=== PATIENT | male | born 1960 | race Caucasian/White ===

== ENCOUNTER 2019-09-21 10:14 | Emergency (ER) | payer MEDICARE, MEDICAID, SELFPAY ==
[2019-09-21 10:15] VITALS: BP 151/110; PULSE 96; RESP 18; TEMP 36.7; O2SAT 93; BMI 31.6
--- NOTE | 2019-09-21 10:41 | ED.DCSUM_ITS ---
History of Present Illness Chief Complaint: Bite Informant: Patient, Family Narrative: Patient was walking his dog when a husky got away from its senior research analyst and he tried to contain the husky and the husky bit him in the right wrist. He states his tetanus is up-to-date. Past Medical History - Allergies and Home Meds Allergies/Adverse Reactions: Allergies No Known Allergies Allergy (Verified 09/21/19 10:15) Primary Care Physician: Chester Baker MD [Primary Care Provider] - 7 Days for suture removal Review of Systems General: Denies: Chills, Fever, Sweats Eyes: Denies: Visual changes - bilaterally, Diplopia ENT: Denies: Rhinorrhea, Sore throat Cardiovascular: Denies: Chest pain, Palpitations Respiratory: Denies: Dyspnea, Cough, Dyspnea on exertion Gastrointestinal: Denies: Abdominal pain, Nausea, Vomiting, Diarrhea, Melena, Hematochezia Genitourinary: Denies: Dysuria, Hematuria, Frequency Musculoskeletal: Denies: Back pain, Extremity Pain Skin: Denies: Rash, Wounds Neurological: Denies: Headache, Weakness, Numbness Physical Exam Vital Signs/Narrative: Vital Signs Temp Pulse Resp BP Pulse Ox 09/21/19 10:15 98.1 F 96 18 151/110 H 93 Inital Vital Signs reviewed: Yes General: Well nourished, Well developed, No Acute Distress Head: Normocephalic, Atraumatic Eyes: Perrl, EOMI ENT: Moist mucous membranes, No rhinorrhea Neck: Supple, Nontender Cardiovascular: Regular rate, Regular rhythm, No murmurs Respiratory: No distress, CTA bilaterally, Chest nontender Abdomen: Soft, Nontender, Nondistended, Normal bowel sounds Back: Nontender, Normal Inspection Extremities: No edema, - - On the lateral wrist is 1/2 cm laceration with some mild swelling. On the medial wrist is a 1 cm gaping laceration with adipose tissue exposed. Neurovascular intact distal. Full range of motion. Skin: Normal color, No rash Neurological: Alert, Oriented x3, Cranial nerves II-XII grossly intact, Normal Strength, Normal Sensation Psychological: Normal affect, Normal Mood Diagnostic/Tx/Re-eval - Medical Decision Making Wound was local anesthetized using 1% lidocaine. The 1 cm gaping laceration was closed loosely with 2 4-0 simple erupted Ethilon sutures. This was done after washing with Shur-Clens and exploring. The half centimeter wound was evaluated and was noted to be bleeding still. It was washed with Shur-Clens and explored and because it also was gaping and still bleeding a one 4-0 Ethilon simple suture was placed with loose approximation of the skin. He was given Augmentin here and will receive a prescription for the same. Patient was advised that he is his high risk of infection as well as his family. Stitches will need to be removed in 7 days. The dog will be monitored. ED Disposition - Plan for ED Patient: Disposition: Home or Assisted Living Diagnosis: Dog bite of right wrist Instructions: Dog Bite Prescriptions: Amox/Clavulanate Tablet [Augmentin Tablet] 875 mg PO Q12H #14 tab Prescription Printed Referrals: Chester Baker MD [Primary Care Provider] - 7 Days for suture removal
--- NOTE | 2019-09-21 10:50 | RAD_ITS ---
STUDY: X-RAY - RIGHT WRIST REASON FOR EXAM: Male, 59 years old. Dog bite right wrist TECHNIQUE: 3 view(s) of the wrist were obtained. COMPARISON: None. FINDINGS: Normal visualized distal radius and ulna. Normal radiocarpal articulation. Normal distal radioulnar articulation. Normal carpal bones. Normal carpal articulations. Normal carpometacarpal articulation of the thumb. Normal second through fifth carpometacarpal articulations. Normal visualized metacarpal bones. The soft tissue structures are unremarkable. No foreign body is seen. RAD/Wrist min 3 Views IMPRESSION: Normal x-ray examination of the wrist. Electronically Signed: Trav Coreas, at 11:13 EDT , Service support ,
[2019-09-21] MEDS: Amox/Clavulanate 875 MG Tablet PO (11:08)
[2019-09-21 11:32] VITALS: PULSE 70; RESP 16; O2SAT 100
== END 2019-09-21 11:32 | disposition home or self-care (01) ==
LOC: ED 10:56
PROVIDERS: Emergency Provider Emergency Medicine; PCP Internal Medicine
DX: S61.551A Open bite of right wrist, initial encounter (principal); W54.0XXA Bitten by dog, initial encounter; Y93.89 Activity, other specified; Y92.89 Other specified places as the place of occurrence of the external cause; Y99.8 Other external cause status
CPT/HCPCS: 12001; 73110; 99283

== ENCOUNTER 2021-08-02 09:25 | Emergency (ER) | payer MEDICARE, MEDICAID, SELFPAY ==
[2021-08-02 09:25] VITALS: BP 122/89; PULSE 77; RESP 16; TEMP 35.6; O2SAT 99; BMI 31.9
--- NOTE | 2021-08-02 09:47 | RAD_ITS ---
INDICATION: injury/ fall EXAMINATION/TECHNIQUE: X-RAY - LEFT XR Wrist Min 3 Views 3 VIEWS COMPARISON: None. FINDINGS: SOFT TISSUES: A wrist joint effusion is seen. There is also soft tissue swelling of the wrist. No radiopaque foreign body. BONES/JOINTS: There is a comminuted fracture of the distal radius that appears to involve the articular surface. There is displacement of the fragments, most notably along the heel sided aspect of the articular surface of the radius. There is also a comminuted and mildly displaced fracture of the ulnar styloid. Lastly there is a osseous body overlying the dorsal aspect of the wrist which likely represents triquetral fracture. No obvious dislocation is seen joint spacing is grossly preserved without significant degenerative change. No erosive changes are seen. RAD/Wrist min 3 Views IMPRESSION: 1. Comminuted and displaced intra-articular fracture of the distal radius. 2. Comminuted and mildly displaced fracture of the ulnar styloid. 3. Likely fracture of the triquetrum. 4. Joint effusion and soft tissue swelling in the wrist. Electronically Signed: Esau Rivero MD at 10:19 EST Tel , Service support ,
--- NOTE | 2021-08-02 09:48 | EDS_ITS ---
HPI History of Present Illness Chief Complaint: Upper Extremity Injury Detail of Chief Complaint: Fall with injury to left wrist today approximately 7 AM Informant: patient Narrative Narrative: Patient presents to the emergency department after falling and injuring his left wrist. Patient states that he was walking his dog when he slipped and fell. Patient is left-hand dominant. Patient denies head or neck injury. He denies chest or abdomen pain. He has been ambulatory. PFSH PFSH Medical History no medical history Home Medications amoxicillin-pot clavulanate 875 mg PO Q12H #14 tab 09/21/19 [Rx Last Taken Unknown] hydrochlorothiazide 12.5 mg PO DAILY 09/21/19 [History Last Taken Unknown] loperamide 2 mg PO PRN PRN 09/21/19 [History Last Taken Unknown] multivitamin with folic acid 1 tab PO DAILY 09/21/19 [History Last Taken Unknown] hydrocodone-acetaminophen 1 tab PO Q4H PRN PRN 2 Days #15 tablet 08/02/21 [Rx Last Taken Unknown] Allergy/AdvReac Type Severity Reaction Status Date / Time No Known Allergies Allergy Verified 09/21/19 10:15 Family History no significant family his Surgical History no surgical history Social History Smoking Status: Never smoker ROS ROS ED Constitutional Constitutional ED: Reports systems reviewed and no addt'l complaints, except as documented; Denies body ache(s), change in weight or chills Eyes Eyes: Denies acute decrease in peripheral vision, change in vision, double vision or loss of vision ENT ENT ED: Reports none; Denies ear pain, lip swelling, loss taste/smell, neck pain, otalgia or sore throat Cardiovascular Cardiovascular: Reports none; Denies abdominal pain, chest pain with activity, leg edema, lightheadedness, palpitations, rapid heart rate or syncope Respiratory/Chest Respiratory/Chest: Reports none; Denies change in mental status, dry cough, dyspnea, hemoptysis, shortness of breath at rest or shortness of breath with exertion Gastrointestinal Gastrointestinal: Reports none; Denies abdominal pain, change in stool character, diarrhea, hematemesis, hematochezia, melena, rectal bleeding or vomiting Genitourinary Genitourinary ED: Reports none; Denies abdominal discomfort, anuria, dysuria, genital pain or polyuria Musculoskeletal Musculoskeletal: Reports none and other Details: Left wrist injury/pain ; Denies arthralgias, back pain, difficulty walking, extremity pain, muscle weakness or myalgias Integumentary Reports none; Denies abscess or rash Neurologic Neurologic: Reports none; Denies abnormal gait, confusion, focal weakness, frequent falls, headache(s), loss of vision, numbness, paresthesias, radicular pain, vertigo or weakness Psychiatric Psychiatric: Reports systems reviewed and no addt'l complaints, except as documented and none; Denies behavioral changes, confusion, difficulty concentrating, hallucinations, suicidal ideation, tactile hallucinations or visual hallucinations Endocrine Endocrinology: Denies none, cold intolerance, excessive sweating, fatigue or heat intolerance Hematologic/Lymphatic Hematologic/Lymphatic: Reports none; Denies anemia, easy bleeding or easy bruising Allergic/Immunologic Allergic/Immunologic ED: Denies as per HPI, none, lip swelling, mouth swelling, throat swelling, tongue swelling or hives EXAM Physical Exam Const Vital Signs: 08/02/21 09:25 Temperature 96.0 F L Temperature Source Temporal Pulse Rate 77 Respiratory Rate 16 Blood Pressure 122/89 H Blood Pressure Mean 100 Pulse Ox 99 Oxygen Delivery Method Room Air Positive well nourished and well developed General Appearance ED: well developed and NAD HEENT Reports TM's clear and moist mucous membranes normocephalic and atraumatic; Negative for trauma or tenderness Tympanic Membrane ED: Yes TM's clear Eyes PERRL and EOMs intact bilaterally General Eye ED: Negative for pale conjunctiva or scleral icterus Neck no lymphadenopathy, supple and no JVD General: Negative for tenderness Chest Wall inspection of chest normal and palpation of chest normal Chest: Negative for tenderness Resp normal respiratory effort and clear to auscultation bilaterally Effort and Inspection: Negative for respiratory distress or pain with movement Auscultation: Negative for rhonchi, wheezes or diminished lung sounds Cardio regular rate, regular rhythm, S1 normal heart sound, S2 normal heart sound and no murmurs Peripheral Pulses: pulses 2+ throughout GI normal to inspection, nondistended, normoactive bowel sounds, soft to palpation, non-tender, non-distended and no masses Back/Spine no CVA tenderness and no thoracic nor lumbar tenderness Extremity Extremity Narrative: Evaluation of the left wrist reveals diffuse soft tissue swelling with diffuse tenderness over the distal radius and ulna. Neurovascular intact distally. No broken skin or open areas noted. No pain at the elbow. General Extremety ED: Yes edema General Extremity: edema Neuro oriented x3, CN's II-XII intact bilaterally, no sensory deficits noted and gait normal Sensorium / Orientation: awake, alert, oriented to person, oriented to place and oriented to time Motor Exam: strength 5/5 throughout and strength abnormal Psych mental status grossly normal Skin no rashes or lesions noted and no wounds MDM MDM MDM Narrative Medical decision making narrative: Case discussed with orthopedic surgeon on- call Dr. Vitaliy Harding who asked that we place patient in a AP splint and given a sling and follow-up with their office. Patient was given a prescription for [facility] and [facility] in the department as well. Using [facility] I did make an AP splint for patient and he tolerated well. Neurovascularly intact after splint placement. Radiography Diagnostic Testing: Three-view x-rays of the left wrist obtained interpreted by myself as fracture of the distal radius and ulnar styloid. Radiology was in agreement however they also felt that patient may have a triquetrum fracture. Discharge Plan Triage Chief Complaint: Upper Extremity Injury ED Provider: Nayeli Hyde Dx/Rx/DC Orders Instructions: ED Colles Fracture No Reduction ... Prescriptions: New hydrocodone-acetaminophen [hydrocodone-acetaminophen] 1 TABLET tablet 1 tab PO Q4H PRN PRN (Reason: Pain) 2 Days Qty: 15 RF: 0 No Action amoxicillin-pot clavulanate 875 MG tablet 875 mg PO Q12H Qty: 14 RF: 0 loperamide 2 MG tablet 2 mg PO PRN PRN (Reason: Diarrhea) RF: 0 hydrochlorothiazide 25 MG tablet 12.5 mg PO DAILY RF: 0 multivitamin with folic acid 1 TABLET tablet 1 tab PO DAILY RF: 0 Primary Care Provider: Chester Baker Referrals: Vitaliy Harding MD [STAFF PHYSICIAN] - 3-5 Days Chester Baker MD [Primary Care Provider] - Disposition Disposition: Home, Self Care
[2021-08-02] MEDS: HYDROcodone Bitartrate/Apap 5/325 Tablet PO (11:06)
== END 2021-08-02 11:13 | disposition home or self-care (01) ==
PROVIDERS: Emergency Provider Emergency Medicine; PCP Internal Medicine; Visit Provider Emergency Medicine
DX: S52.512A Displaced fracture of left radial styloid process, initial encounter for closed fracture (principal); W19.XXXA Unspecified fall, initial encounter
CPT/HCPCS: 29126; 29125; 73110; 99283